=== PATIENT | male | born 1970 | race African-American/Black ===

== ENCOUNTER 2020-10-15 06:11 | Emergency (ER) | payer OTHER ==
[~2020-10-15] VITALS: Ht 177.8 cm; Wt 108.2 kg
[2020-10-15 06:25] VITALS: BP 167/100
[2020-10-15] MEDS ORDERED: ERYT1OIN6 OP (06:31)
--- NOTE | 2020-10-15 06:31 | PHYS DOC ---
General Adult EDM: Chief Complaint: EYE PROBLEMS HPI: HPI: 50-year-old male presents with red right eye. 2 days ago, the patient started to have some irritation in the right eye. He is not sure when it started. He does not believe he got anything in his eye. It became itchy and worse yesterday. Overnight, the patient had moderate crusting of the eye when he woke up. It looks more red and is more irritated. The patient decided to come in for evaluation. He is not having any trouble with the left eye. He denies any other injuries or concerns at this time. Review of Systems: Review of Systems: Constitutional: Denies fever or chills Eyes: Erythematous right eye HENT: Denies nasal congestion or sore throat Respiratory: Denies cough or shortness of breath Cardiovascular: Denies chest pain or edema GI: Denies abdominal pain, nausea, vomiting, bloody stools or diarrhea : Denies dysuria Musculoskeletal: Denies back pain or joint pain Integument: Denies rash Neurologic: Denies headache, focal weakness or sensory changes Endocrine: Denies polyuria or polydipsia Lymphatic: Denies swollen glands Psychiatric: Denies depression or anxiety Physical Exam: PE: Constitutional: Well developed, well nourished, no acute distress, non-toxic appearance. [] HENT: Normocephalic, atraumatic, bilateral external ears normal, oropharynx moist, no oral exudates, nose normal. [] Eyes: PERRLA, EOMI, conjunctiva erythematous of the right eye, evidence of discharge. Left eye within normal limits [] Neck: Normal range of motion, no tenderness, supple, no stridor. [] Cardiovascular: Heart rate regular rhythm, no murmur [] Lungs & Thorax: Bilateral breath sounds clear to auscultation [] Abdomen: Bowel sounds normal, soft, no tenderness, no masses, no pulsatile masses. [] Skin: Warm, dry, no erythema, no rash. [] Back: No tenderness, no CVA tenderness. [] Extremities: No tenderness, no cyanosis, no clubbing, ROM intact, no edema. [] Neurologic: Alert and oriented X 3, normal motor function, normal sensory function, no focal deficits noted. [] Psychologic: Affect normal, judgement normal, mood normal. [] EKG: EKG: [] Radiology/Procedures: Radiology/Procedures: [] Heart Score: C/O Chest Pain: N/A Risk Factors: Risk Factors: DM, Current or recent (<one month) smoker, HTN, HLP, family history of CAD, obesity. Risk Scores: Score 0 - 3: 2.5% MACE over next 6 weeks - Discharge Home Score 4 - 6: 20.3% MACE over next 6 weeks - Admit for Clinical Observation Score 7 - 10: 72.7% MACE over next 6 weeks - Early Invasive Strategies Course & Med Decision Making: Course & Med Decision Making Pertinent Labs and Imaging studies reviewed. (See chart for details) The patient appears to have conjunctivitis. He does not wear contacts but I will still treat him with erythromycin ointment. He is stable for discharge at this time. [] Nneka Disclaimer: Nneka Disclaimer: This electronic medical record was generated, in whole or in part, using a voice recognition dictation system. Departure Departure: Impression: Primary Impression: Conjunctivitis, right eye Disposition: HOME / SELF CARE / HOMELESS Condition: STABLE Referrals: PCP,UNKNOWN (PCP) Patient Instructions: Conjunctivitis (Viral and Bacterial) Scripts Erythromycin Base (Erythromycin) 1 Gm Oint...g. 1 GM OP TID for bacterial conjunctivitis for 7 Days, #1 MISC Prov: SHAHNAZ VILLAFUERTE DO 10/15/20 SHAHNAZ VILLAFUERTE DO October 15, 2020 06:31
== END 2020-10-15 06:37 | disposition home or self-care (01) ==
LOC: ER 06:11
DX: H10.31 Unspecified acute conjunctivitis, right eye (principal)
CPT/HCPCS: 99283-25